=== PATIENT | male | born 1945 | race Caucasian/White ===

== ENCOUNTER 2017-10-12 06:22 | Day surgery (SDC) | payer MEDICARE ==
[~2017-10-12 06:22] MED LIST: RINGER'S SOLUTION,LACTATED 1,000 ML IV PRN; ceFAZolin SODIUM 2 GM in DEXTROSE 5 % IN WATER 50 ML IV PRN
[2017-10-12] MEDS ORDERED: RINGER'S SOLUTION,LACTATED 1,000 ML IV ONE (09:03)
[2017-10-12] MEDS ORDERED: BUPIVACAINE HCL/EPINEPHRINE 50 ML VIAL IJ ONE (09:50)
[2017-10-12] MEDS ORDERED: oxyCODONE HCL/ACETAMINOPHEN 1 TAB TABLET PO ONE (10:01)
[2017-10-12] MEDS ORDERED: RINGER'S SOLUTION,LACTATED 1,000 ML IV PRN (10:01)
[2017-10-12 12:05] VITALS: BP 125/82
--- NOTE | 2017-10-12 18:17 | OR ---
Operative Report - Dictated Report Narrative: OPERATIVE REPORT DATE OF OPERATION: 10/12/2017 PREOPERATIVE DIAGNOSIS: Ventral incisional hernia. History of colon polyps POSTOPERATIVE DIAGNOSIS: Ventral incisional hernia. Normal colonoscopy OPERATION: Colonoscopy. Repair of ventral incisional hernia using small Ventralex hernia patch SURGEON: Milena Aleman MD ANESTHESIA: Gen. endotracheal anesthesia Wale Gonzales CRNA INDICATIONS FOR PROCEDURE: The patient is a 72-year-old male referred by Dr. Fink. He has developed a reducible ventral incisional hernia above the umbilicus which is enlarging and increasingly symptomatic. He had removal of a 5 mm tubular adenoma in the ascending colon on colon exam in 2011. The patient' s father had colon cancer at age 80. FINDINGS: Properitoneal fat containing ventral incisional hernia with 2 cm fascial defect. Diverticulosis, otherwise normal colonoscopy to the cecum NARRATIVE OF PROCEDURE: The patient was identified in the holding area, and prior to the administration of anesthetic, a multidisciplinary timeout was observed. The patient was placed supine, SCDs were applied and general endotracheal anesthetic administered. COLONOSCOPY: With the patient in the left lateral position and after the administration of intravenous sedation, the perineum was inspected. There was no evidence of pilonidal disease or skin breakdown. The external appearance of the anus was normal. Sphincter tone was good. The flexible fiberoptic colonoscope was inserted into the rectum which was insufflated with air. The rectal mucosa and submucosal vascular pattern appeared normal, the prep was seen to be complete with exception of some green liquid which could be suctioned sufficient for diagnostic purposes. The scope was advanced through the sigmoid colon, which contained several not impacted noninflamed diverticular openings. The scope was advanced up the descending colon, and around the splenic flexure where the triangular haustral architecture of the transverse colon was seen. The scope was advanced across the transverse colon, around the hepatic flexure to the cecum, where the confluence of tenia and the ileocecal valve were identified. The mucosa at this level appeared normal. The scope was then slowly withdrawn in a circular fashion so that all aspects of colonic mucosa were inspected. The colon was normal in course and caliber. The haustral architecture appeared well preserved throughout with no evidence of external compression. The mucosa and submucosal vascular pattern appeared normal, specifically there was no gross evidence to suggest colitis or inflammatory bowel disease and no AV malformations were seen. The diverticulosis was mild to moderate in degree and confined primarily to the sigmoid colon. No polyps were encountered. The scope was gradually withdrawn to the level of the rectum. As much insufflated air as possible was removed. The scope was withdrawn from the patient and this portion of the procedure terminated. REPAIR OF VENTRAL INCISIONAL HERNIA: The patient was returned to the supine position without incident and 2 g of intravenous Ancef administered. The patient's abdomen was prepped with Betadine solution and the midline above the umbilicus outlined with 4 sterile towels. The remainder the patient was covered with a sterile disposable drape. A 5 cm midline surgical incision above the umbilicus to include the previous surgical scar. Dissection was carried into subcutaneous tissue with electrocautery until herniated properitoneal fat was encountered. This was dissected free from surrounding subcutaneous tissue down to the fascial defect which measured approximately 2 cm. The fat could then be reduced into the properitoneal space. There was an additional 3 mm fascial defect just superior to the main defect. Digital palpation of the undersurface of the anterior abdominal wall revealed no additional defects. The properitoneal space was then developed circumferentially to allow for placement of a small ventralex hernia patch. The patch was deployed and completely unfurled. The wings of the patch were then secured above and below the defect with interrupted sutures of 0 Ethibond. The superior suture included and closed the smaller fascial defect as well. 4 additional sutures of 0 Ethibond were used circumferentially to secure the patch to the fascia. After receiving a correct sponge needle and instrument count attention was turned to closing the wound. Subcutaneous tissue was approximated over the mesh in layers with interrupted sutures of 0 chromic. The skin was secured with a running subcuticular suture of 4-0 Vicryl. The operative site was washed and dried. Dressings of Dermabond folded 4 x 4 and Medipore tape were applied. No specimen was submitted. There was no measurable blood loss. 0.25% Marcaine with epinephrine was used for local anesthetic infiltration. The operative procedure was terminated at this point. The patient tolerated the anesthetic and procedure well without complication and was transferred to the recovery room awake, extubated, and in stable condition. The patient remained stable throughout a period of postoperative observation. His incisional discomfort was controlled with po Percocet, he was able to tolerate by mouth intake, and was up without assistance. I shared the operative findings with the patient and he was given copies of the photographs which appear in the medical record. He was discharged home with instructions not to engage in hazardous activity today. He is not to lift he is not to drive. He is to leave the current dressing dry and intact for 48 hours but then may shower and change the dressing daily or as needed. He was given a prescription for Percocet 5/325 mg #30. He may advance diet as tolerated. He is to continue those medications as listed in the history and physical exam. He has phone numbers to call if needed for questions or concerns, and a return office appointment was made for 1 week. Reviewed and electronically signed
== END 2017-10-12 06:23 | disposition home or self-care (01) ==
LOC: AMB 06:22
PROVIDERS: ATTEND Surgery
PROC: 0DJD8ZZ Inspection of Lower Intestinal Tract, Via Natural or Artificial Opening Endoscopic (ICD-10-PCS; principal; 2017-10-12)
PROC: 0WUF0JZ Supplement Abdominal Wall with Synthetic Substitute, Open Approach (ICD-10-PCS; 2017-10-12)
DX: Z12.11 Encounter for screening for malignant neoplasm of colon (principal); K43.2 Incisional hernia without obstruction or gangrene; Z86.010 Personal history of colon polyps; Z80.0 Family history of malignant neoplasm of digestive organs; Z87.891 Personal history of nicotine dependence; Z68.30 Body mass index [BMI] 30.0-30.9, adult
CPT/HCPCS: 49560; 49568; G0105

== ENCOUNTER 2020-04-15 06:22 | Observation (INO) ==
--- NOTE | 2020-04-09 08:20 | ANES ---
Anesthesia Pre Procedure Eval HOME MEDICATIONS Cinnamon Bark [Cinnamon] 500 mg PO DAILY 10/03/17 [Last Taken Unknown] Anya Root [Anya] 250 mg PO DAILY 10/03/17 [Last Taken Unknown] Termac 1 tsp PO DAILY 10/03/17 [Last Taken Unknown] meloxicam 15 mg tablet 15 mg PO DAILY #90 tab 08/10/19 [Last Taken Unknown] trazodone 100 mg tablet 100 mg PO HS tab 08/30/19 [Last Taken Unknown] montelukast 10 mg tablet 10 mg PO HS #90 tab 09/18/19 [Last Taken Unknown] tadalafil 20 mg tablet 20 mg PO DAILY PRN #90 tab 04/07/20 [Last Taken Unknown] Allergies/Adverse Reactions: Allergies Allergy/AdvReac Type Severity Reaction Status Date / Time Penicillins Allergy Intermediate Other Verified 04/08/20 14:26 - Planned Procedure Planned Procedure: Right Total Knee Arthroplasty Medication List Reviewed:: Yes Allergies Verified: Yes Medical History (Last Reviewed 04/09/20 @ 08:18 by Kobe England CRNA) Diverticulosis (Chronic) Onset Date: 10/12/17 * No benzodiazepines or SHY receptor agonists Onset Date: 10/09/[address] Isaiah Agarwal ([facility]), patient should be off benzodiazepines and/or any SHY receptor agonists or any medication that might affect directly or indirectly the cerebellum. Ataxia Onset Date: 10/09/18 Dr. Isaiah Ceja, [facility]. Chronic progressive ataxia. 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 Los Coyle, [facility]. Pneumococcal vaccine refused [facility]: [facility]aneurysm Onset Date: 06/12/18 Dr. Los Coyle [facility]. Right. Squamous blepharitis of right lower eyelid Onset Date: 06/12/18 Bunion Onset Date: ~2005 Head injury Onset Date: Unknown Requiring 47 stitches. Hernia, hiatal Onset Date: Unknown Inguinal hernia Onset Date: Unknown Prostate cancer Onset Date: Unknown Tubular adenoma Onset Date: 09/24/11 Surgical History (Last Reviewed 04/09/20 @ 08:18 by Kobe England CRNA) History of arthroscopic knee surgery Onset Date: 08/25/99 Dr. Casas [facility]. Right. History of bunionectomy Onset Date: 12/09/05 Dr. Casas [facility]. Left. History of colonoscopy Onset Date: 09/24/11 Dr. Bo Rincon [facility]. Tubular adenoma. Repeat 5 years. History of colonoscopy Onset Date: 10/12/17 Dr. Ale Aleman [facility]. Diverticulosis. History of colonoscopy Onset Date: 08/12/00 Dr. Bo Rincon [facility]. Normal. History of incisional hernia repair Onset Date: 10/12/17 Dr. Ale Aleman [facility]. Ventral with small Ventralex patch. History of inguinal hernia repair, bilateral Onset Date: Unknown History of radical prostatectomy Onset Date: ~2007 History of shoulder surgery Onset Date: Unknown History of tonsillectomy Onset Date: Unknown Family History (Last Reviewed 04/09/20 @ 08:18 by Kobe England CRNA) Brother Hypertension Brother Throat cancer Father , age 83 Colon cancer Mother , age 84 Bone cancer - Family Anesthesia History Family History:: no untoward family reactions to anesthesia, no familial bleeding tendencies, no family history of clotting disorders, no family history of premature - Airway/Neck/Teeth Within Normal Limits:: Yes Teeth Condition: intact Denture Type: Perm crown/bridge Mallampatti Score: 1 Thyromental (T-M) distance: > 6 cm Mandibulo Hyoid distance: > 3 cm - Respiratory Smoking Status: Former smoker Discussed smoking cessation including day of surgery: No Sleep Apnea currently treated: No Sleep Apnea by current assessment: No Discussed Risks/Treatment of AUTUMN: No - Cardiovascular Tolerate Activity: Fair Heart Sounds: S1 & S2, Regular - Anesthesia Assessment and Plan ASA Class: PS, III Anesthesia Type Plan: Block - Right ultrasound guided adductor canal nerve block for postop analgesia, Spinal
[~2020-04-15 06:22] MED LIST changes: +ISOPROPYL ALCOHOL 480 APPL BTL MC ONE; +MORPHINE SULFATE 15 MG TABLET.SA PO PRN; -RINGER'S SOLUTION,LACTATED 1,000 ML IV PRN; +ROPIVACAINE HCL/PF 100 MG, EPINEPHrine 0.2 MG, KETOROLAC TROMETHAMINE 30 MG in NORMAL S... IJ PRN; +TRANEXAMIC ACID 1,000 MG in NORMAL SALINE 100 ML IV PRN; +ceFAZolin SODIUM 1 GM VIAL IV PRN; +ceFAZolin SODIUM 1 GM VIAL ONE; -ceFAZolin SODIUM 2 GM in DEXTROSE 5 % IN WATER 50 ML IV PRN
[2020-04-15] MEDS: RINGER'S SOLUTION,LACTATED 1,000 ML IV PRN ×3 (07:03→09:30)
[2020-04-15] MEDS ORDERED: fentaNYL CITRATE/PF 50 MCG/ML AMPUL ONE (07:28)
[2020-04-15] MEDS ORDERED: LIDOCAINE HCL 20 ML VIAL ONE (07:28)
[2020-04-15] MEDS ORDERED: ONDANSETRON HCL/PF 2 MG/ML VIAL ONE (07:29)
[2020-04-15] MEDS ORDERED: PROPOFOL VIAL IV ONE (07:29)
[2020-04-15] MEDS ORDERED: BUPIVACAINE HCL/EPINEPHRINE 50 ML VIAL ONE (07:29)
[2020-04-15] MEDS ORDERED: diphenhydrAMINE HCL 50 MG/ML VIAL IV PRN (09:53)
[2020-04-15] MEDS ORDERED: ACETAMINOPHEN 500 MG TABLET PO PRN (09:53)
[2020-04-15] MEDS ORDERED: MAG HYDROX/ALUMINUM HYD/SIMETH 30 ML UDC PO PRN (09:53)
[2020-04-15] MEDS ORDERED: ZOLPIDEM TARTRATE 5 MG TABLET PO PRN (09:53)
[2020-04-15] MEDS ORDERED: MAGNESIUM HYDROXIDE 30 ML UDC PO PRN (09:53)
[2020-04-15] MEDS ORDERED: ONDANSETRON HCL/PF 2 MG/ML VIAL IV PRN (09:53)
--- NOTE | 2020-04-15 09:53 | OR ---
Operative Report - Dictated Report Narrative: Date: 04/15/2020 Preoperative diagnosis: Right knee degenerative joint disease. Postoperative diagnosis: Right knee degenerative joint disease. Procedure: Right total knee arthroplasty. Surgeon: Hayder Coronel M.D. Radar Systems Engineer: Deven Yu PA-C (provided and essential set of skilled, educated hands that assisted with transfer, positioning, prepping, draping, manipulation, retraction, placement of jigs, injection, insertion of implants, irrigation, closure wounds, and dressings all of which could not be performed by the available surgical crew) Anesthesia: Spinal with regional block and local periarticular joint injection. Complications: None Specimens: Bone. Estimated blood loss: Minimal. Tourniquet time: 90 Minutes at 325 millimeters of mercury. Retained implants: Depuy Attune size 8 right lugged cemented posterior stabilized femoral component. Size 7 fixed-bearing cemented tibial platform. 8 by 6 millimeter posterior stabilized cross-linked tibial insert. 41 millimeter medialized patella button. Indications: Mr. Nation is a 74-year-old gentleman who has had longstanding right knee pain and arthrosis. This patient was followed in my clinic for period of time with significant complaints of right knee pain consistent with arthritic changes. He had failed conservative measures including, but not limited to, activity modification, passage of time, medications, and other conservative measures. Patient wished to proceed with surgical treatment. The risks, benefits, and alternatives were discussed in clinic. The risks of , blood clots, bleeding, infection, nerve/tendon blood vessel/ injury, malposition of components, intraoperative fracture, postoperative limited range of motion, persistent pain, failure of components, and need for additional procedures. Patient wished to proceed consent was obtained after answering all questions. Procedure: After marking the correct extremity on the floor, the patient was taken to the operating room. A timeout was performed. IV antibiotics consisting of Ancef were administered prior to the procedure. A regional followed by spinal anesthetic was induced by anesthesia, per my request, on the operative table with all bony prominences well-padded. Jordan catheter was placed, and a bump was placed under the operative side buttock. SCDs and SHAHID hose were utilized on the nonoperative leg. A well-padded tourniquet was applied to the operative thigh. The operative leg was then pre-scrubbed with alcohol, prepped, and draped in a standard sterile fashion. After exsanguinating the extremity with an Esmarch bandage, the tourniquet was inflated. After marking out the anterior knee for standard incision centered over the patella, the skin was incised and dissected down to the joint retinaculum. The joint retinaculum was marked out as well as the horizontal axis of the patella, and a standard medial parapatellar arthrotomy was then made. The most proximal aspect of the quadriceps tendon and the patella tendon insertion were protected from release. A partial synovectomy was performed as well as a resection of the infrapatellar fat pad. The distal femoral fat pad proximal to the trochlea was also resected using cautery. The soft tissues were elevated off the medial aspect of the proximal tibia using a Richard elevator ensuring that we did not transect the medial collateral ligament. Upon initial evaluation range of motion was approximately 5 degrees to 130 degrees of flexion. There were signs of advanced arthrosis in the medial, lateral, and patellofemoral joint spaces. He had a large scarred in loose body in the lateral patellar retinaculum as well as the popliteal space. These were removed. There were large marginal osteophytes which were removed with a rongeur. The knee was hyperflexed and the patella was tucked laterally. Protecting the surrounding soft tissues with Homans, an entry drill was placed down the femoral canal using Whitesides line for guidance into the entry point. The intramedullary femoral alignment dony was utilized in order to cut the distal femur in 5 degrees of valgus resecting 10 millimeters of bone. Next the distal femur was sized to a size 8. A posterior referencing guide was utilized to place the distal femoral cutting block in 3 degrees of external rotation. This was pinned into place. The rotation was confirmed both visually and based on anatomic landmarks. The 4 in 1 cutting jig of the appropriate size was utilized in order to make all bony cuts. The diane wing was used to ensure no notching. Retractors were utilized in order to protect surrounding soft tissues. This cut did not result in any excessive notching. We then cut the box centered over the distal femur. This allowed for resection of the anterior and posterior cruciate ligaments. I then turned my attention to the preparation of the tibia. Using an extra medullary tibial alignment dony, 3 millimeters of bone was resected off the medial articular surface. This was made perpendicular to the mechanical axis of the joint with the alignment dony centered over the ankle mortise. The alignment dony was checked and was noted to be parallel to the mechanical axis, centered over the medial one third of the tibial tubercle, paralleling the anterior surface of the tibia. We then turned our attention to the remaining meniscus and soft tissues. These were removed while protecting the surrounding ligaments and soft tissues. The marginal osteophytes off the anterior, posterior, medial, lateral aspects of the femur and tibia were removed. The tibia was sized out to a size 7. Next the tibia was drilled and punched in an externally rotated position. Next the trial femur and a series of tibial inserts were utilized in order to allow for full extension and maximal flexion. It was found that a 6 millimeter insert gave the best range of motion and stability at multiple flexion points as well as at full extension there was less than 2 mm of gapping both medially and laterally. There is minimal anterior translation with the knee at 90 degrees of flexion and no signs of being able to dislocate the knee. The patella was then prepared. The initial thickness was 21 millimeters. This was reamed down to 12 millimeters parallel to the anterior surface of the patella. It was sized out to a size 41 medialized patella button. This was then drilled and trialed. Without any medial restraint the patella tracked appropriately and did not sublux or dislocate. At this point, it was felt these were the appropriate sized implants, and all trials were removed. The standard periarticular joint injection consisting of ropivacaine, Toradol, and epinephrine were injected into the periarticular joint tissues. The bony surfaces were thoroughly irrigated with a pulsatile-suction saline irrigation device. A bone plug from the prior resected anterior chamfer cut was placed into the drill hole at the distal femur. The bony surfaces were then dried in preparation for placement of the implants. The cement was vacuum mixed per the engineering secretary's instructions. The cement was placed on the dry bony surfaces and posterior aspect of the implants. The implants were impacted into place, removing all extruded cement. At this point anesthesia administered tranexamic acid per protocol intravenously. The knee was placed in extension with axial loading with the trial insert while the cement cured. Once the cement cured, all remaining extruded cement was removed. The knee was placed through a range of motion with the trial insert to ensure appropriate range of motion and stability. Final range of motion was approximately 0 to 130 degrees. The knee was again thoroughly irrigated with pulsatile saline lavage. The final polyethylene insert was then impacted into place ensuring no retained soft tissues. The remaining periarticular joint injection was injected. A medium Hemovac drain was placed exiting superior laterally. The knee was then placed over a triangle and the arthrotomy was closed with interrupted #1 Vicryl after thoroughly irrigating the joint. The deep and subcutaneous tissues were closed with interrupted 0 and 3-0 Vicryl respectively. Skin was closed with a running subcutaneous 3-0 Monocryl and Prineo Dermabond dressing. 4 x 4's, Sof-Rol, and a full leg Ousmane wrap were applied. All sponge, needle, blade, and instrument counts were correct prior to closing the wounds. Postoperative condition: The patient was awoken and transferred to the postanesthesia care unit in stable condition. Plan is to be admitted to the inpatient medical/surgical floor postoperatively for 24 hours of IV antibiotics, physical therapy, occupational therapy, and medical comanagement. Patient will be weightbearing as tolerated with range of motion as tolerated. DVT prophylaxis will be with SCDs, SHAHID hose, and pharmacological anticoagulation. Anticipated hospital stay is approximately 1-3 days.
[2020-04-15] MEDS ORDERED: TADALAFIL 20 MG TABLET PO PRN (09:56)
--- NOTE | 2020-04-15 10:29 | ANES ---
Post Anesthesia Discharge - Transfer of Care Transfer of Care handoff given to nurse: Yes - Discharge from PACU Discharge from PACU when meets criteria: Yes - Discharge to ASU Discharge to ASU-no complications/pt stable: Yes
--- NOTE | 2020-04-15 10:31 | ANES ---
Post Anesthesia Assessment - Vital Signs Vitals: Last Vital Signs Temp 36.1 C 04/15/20 10:25 Pulse 60 04/15/20 10:25 Resp 14 04/15/20 10:25 BP 82/46 L 04/15/20 10:25 Pulse Ox 94 04/15/20 10:25 Airway Patency: Normal - Mental Status Level Of Consciousness: Awake - Pain Level Pain Score: 0 - N/V Assessment Nausea/Vomiting Presence: None Dehydration:: No
--- NOTE | 2020-04-15 10:31 | ANES ---
Anesthesia Procedure Note Procedure Note: ANESTHESIA PROCEDURE NOTE Date of Procedure: 04/15/2020. Time of procedure: 734. Performed by: Kobe England CRNA Cell Operator: None. Preprocedure diagnosis: Right knee degenerative joint disease. Post procedure diagnosis: Same. Procedure: Right ultrasound guided adductor canal block for postoperative analgesia. Indications: The patient is a 74-year-old male, requesting right ultrasound- guided abductor canal nerve block for postoperative analgesia related to right total knee arthroplasty. Findings: See below. Details of the procedure: The tissue over the intended target site was cleansed with ChloraPrepand draped in a sterile fashion. 2 ml Lidocaine 1 % was infiltrated to the skin and subcutaneous tissue at the intended target site. Under sterile technique and ultrasound guidance a 20-gauge block needle was inserted through the right sartorius muscle to the saphenous nerve just anterior and medial to the superficial femoral artery and vein. 15 mL's of 0.5% bupivacaine was injected after negative aspiration for blood. Needle tip and spread of local anesthetic surrounding the saphenous nerve was observed throughout the injection with real time ultrasound visualization. The needle was then removed intact. No complications were noted. The images were retained in the Hospital medical database. EBL: Minimal. Fluids: N/A. Specimen: N/A. Post procedure condition: The patient tolerated the procedure well. No complications were noted. Thank you for this consultation. Kobe England CRNA
[2020-04-15] MEDS: DEXTROSE 5%-LACTATED RINGERS 1,000 ML IV PRN ×2 (10:48→19:58)
[2020-04-15] MEDS: KETOROLAC TROMETHAMINE 15 MG/ML VIAL IV SCH ×3 (11:09→21:01)
[2020-04-15] MEDS: CEFAZOLIN SODIUM/DEXTROSE,ISO 1 GM/50 ML BAG IV SCH ×3 (11:11→23:13)
[2020-04-15] MEDS: oxyCODONE HCL/ACETAMINOPHEN 1 TAB TABLET PO PRN ×2 (16:11→20:59)
[2020-04-15] MEDS ORDERED: SENNOSIDES/DOCUSATE SODIUM 1 TAB TABLET PO SCH (21:00)
[2020-04-15] MEDS ORDERED: MONTELUKAST SODIUM 10 MG TABLET PO SCH (21:00)
[2020-04-15] MEDS ORDERED: traZODone HCL 50 MG TABLET PO SCH (21:00)
[2020-04-15] MEDS ORDERED: MELATONIN 3,000 MCG TABLET PO SCH (21:00)
[2020-04-16] MEDS: KETOROLAC TROMETHAMINE 15 MG/ML VIAL IV SCH ×2 (04:14→09:59)
[2020-04-16] MEDS: oxyCODONE HCL/ACETAMINOPHEN 1 TAB TABLET PO PRN ×3 (04:52→13:57)
[2020-04-16 06:35] LABS: Hematocrit 34.1 % (42.0-52.0); Hemoglobin 11.1 gm/dL (13.5-18.0); Mean Cell Volume 87.2 fl (78-100); Mean Corpuscular Hemoglobin 28.4 pg (27-31); Mean Corpuscular Hgb Conc 32.6 g/dl (32-36); Mean Platelet Volume 8.5 fl (8-11.3); Platelet Count 212 K/mm3 (150-450); Red Blood Count 3.91 M/mm3 (4.7-6.0); Red Cell Distribution Width 13.1 % (11.5-14.0); White Blood Count 8.9 K/mm3 (4.0-10.5)
[2020-04-16 06:52] LABS: Anion Gap 10.1 mmol/L (6.8-13.8); BUN/Creatinine Ratio 11.6 (9.0-21.6); Calcium * 8.3 mg/dL (7.9-10.9); Carbon Dioxide 30.4 mmol/L (24-32.6); Estimated Creat Clear 55.3; Potassium 4.5 mmol/L (3.4-4.6)
[2020-04-16] MEDS: ESCITALOPRAM OXALATE 10 MG TAB PO SCH ×2 (08:23)
[2020-04-16] MEDS: VITAMIN B COMP W-C 1 TAB TABLET PO SCH ×2 (08:23→08:24)
[2020-04-16] MEDS ORDERED: ENOXAPARIN SODIUM 40 MG/0.4 ML SYRG SC SCH (08:54)
--- NOTE | 2020-04-16 11:33 | DS ---
Date of Discharge:: 04/16/20 Hospital Course: Mr. Nation was admitted to the floor after undergoing right total knee arthroplasty. Tolerated this well. Was admitted to the floor postoperatively for 24 hours of IV antibiotics, pain control, medical comanagement, and occupational and physical therapy. OT and PT were consulted to assist with activities of daily living and ambulation. Was made weightbearing as tolerated with range of motion as tolerated. Pain was initially controlled with IV regimen. This was transitioned to oral once tolerating a by mouth intake. Was resumed on home diet and medications. Had a Jordan catheter inserted and the operating room which was discontinued on postoperative day 1. A drain was plac ed intraoperatively into the knee which was discontinued on postoperative day 1. Lovenox SCD and SHAHID hose were utilized for DVT prophylaxis. Vital signs remained stable to the hospital course. Serial labs were obtained which showed a final hemoglobin of 11.1 grams. BMP was reviewed and was stable. Physical examination throughout the hospital course showed an extremity that had sensation that was intact to light touch, palpable pulses, a benign wound, motor intact to the toes, ankle, and knee. Knee range of motion was approximately 5 degrees to 80 degrees. Once an oral pain regimen was tolerated and physical therapy goals were met, it was felt that they were stable for discharge to home. Instructions: Continue with weightbearing as tolerated and range of motion as tolerated. It is OK to shower on the wound if it is not draining. If you note any drainage or for comfort you can cover with dry gauze and tape. Change every 2-3 days as needed. Continue with physical therapy. Resume home diet. Report any fever over 101.5 Fahrenheit, uncontrolled pain, increased drainage, foul odor of drainage, new or increased calf pain or shortness of breath, or any other significant complaints. A 325mg dialy aspirin will be started after finishing anticoagulation if not allergic. Continue with SHAHID hose on the operative extremity until instructed otherwise. No driving until instructed otherwise. Follow up in approximately 10-14 days. Procedures Performed: see notes below List Procedures: Right total knee arthroplasty Results and Findings: Lab Pending Results 04/16/20 06:00: WBC 8.9, RBC 3.91 L, Hgb 11.1 L, Hct 34.1 L, MCV 87.2, MCH 28.4, MCHC 32.6, RDW 13.1, Plt Count 212, MPV 8.5 04/16/20 06:00: Sodium 138, Plasma Sodium 138, Potassium 4.5, Chloride 102, Carbon Dioxide 30.4, Anion Gap 10.1, BUN 14, Creatinine 1.21, Est GFR (Non-Af Amer) 62, BUN/Creatinine Ratio 11.6, Random Glucose 97, Calcium 8.3 Discharge Location: Home Disposition: Home self-care Condition: Good Discharge Activity: Activity as tolerated, Weight bearing, Other - With wheeled walker Discharge Diet: General/regular food Referrals: Johnny Fink DO [Primary Care Provider] - Additional Patient Instructions (free text): PT at [facility] 04/17/20 at 08:30am. Follow up in the Orthopedic office with Deven Yu May 07 at 9:15 am. Prescriptions (Any new or edited meds): Enoxaparin Sodium [Lovenox] 40 mg SC Q24H #7 disp.syrin Transmission Status: Pending to [facility] #[id number] oxyCODONE HCL/ACETAMINOPHEN [Percocet 5 MG/325 MG] 2 tab PO Q4H PRN #56 tab PRN Reason: Moderate Pain (Pain Scale 4-6) Transmission Status: Received by [facility] #[id number] Sennosides/Docusate Sodium [Senokot-S] 2 tab PO HS #30 tab Transmission Status: Pending to [facility] #[id number] Complete Home Medications List: Complete Home Medication List: meloxicam 15 mg tablet 15 mg PO DAILY #90 tab 08/10/19 trazodone 100 mg tablet 100 mg PO HS tab 08/30/19 montelukast 10 mg tablet 10 mg PO HS #90 tab 09/18/19 tadalafil 20 mg tablet 20 mg PO DAILY PRN #90 tab 04/07/20 Escitalopram Oxalate 10 mg PO DAILY 04/09/20 Melatonin 5 mg PO HS 04/09/20 Vitamin B Complex 1 cap PO DAILY 04/09/20 Enoxaparin Sodium [Lovenox] 40 mg SC Q24H #7 disp.syrin 04/16/20 Sennosides/Docusate Sodium [Senokot-S] 2 tab PO HS #30 tab 04/16/20 oxyCODONE HCL/ACETAMINOPHEN [Percocet 5 MG/325 MG] 2 tab PO Q4H PRN #56 tab 04/16/20 Amb Orders for Discharge: PT Evaluation and Treatment* Facility: [facility], Location: Rehabilitation Services Forms: Patient Portal Registration
--- NOTE | 2020-04-16 11:36 | DS ---
(1) Status post total right knee replacement Problem: Acute Date of Discharge:: 04/16/20 Hospital Course: 74-year-old male postop day 1 status post right total knee arthroplasty. Patient was admitted postoperatively for monitoring, PT/OT, pain control, return to p.o. diet. Patient has had an uncomplicated stay to this point. He is doing well he has accomplished ambulating without significant pain with PT/OT. Discussed with patient discharge today, and continued plan of care. Exam today reveals right lower extremity--> bandages in place, clean/dry/intact, distal capillary refill brisk, sensation tact light touch, 5/5 plantar flexion dorsiflexion ankle, no significant erythema or drainage through dressing. Patient will otherwise continue with the following recommendations: -Weightbearing as tolerated, assistive device PRN -PT/OT progress as tolerated per protocol -P.o. diet as tolerated -P.o. pain medication PRN -DVT prophylaxis: Lovenox for 10 days followed by 325 mg aspirin daily for 4 to 6 weeks, SHAHID hose knee-high bilateral -Maintain pernio dressing in place -Follow-up with orthopedic outpatient clinic at 3 weeks postop -Disposition: Discharge home with outpatient PT, follow-up with orthopedic Procedures Performed: see notes below List Procedures: Status post right total knee arthroplasty Results and Findings: Lab Pending Results 04/16/20 06:00: WBC 8.9, RBC 3.91 L, Hgb 11.1 L, Hct 34.1 L, MCV 87.2, MCH 28.4, MCHC 32.6, RDW 13.1, Plt Count 212, MPV 8.5 04/16/20 06:00: Sodium 138, Plasma Sodium 138, Potassium 4.5, Chloride 102, Carb on Dioxide 30.4, Anion Gap 10.1, BUN 14, Creatinine 1.21, Est GFR (Non-Af Amer) 62, BUN/Creatinine Ratio 11.6, Random Glucose 97, Calcium 8.3 Discharge Location: Home Disposition: Home self-care Condition: Stable Discharge Activity: Activity as tolerated, Weight bearing - Assistive device PRN Discharge Diet: General/regular food Referrals: Johnny Fink DO [Primary Care Provider] - Problem Oriented Discharge Instructions to Patient/Family: Total Knee Replacement, Care After, [id number] Language (Citizen Of [place] or Estonian Available): Citizen Of [place] Additional Patient Instructions (free text): PT at [facility] 04/17/20 at 08:30am. Follow up in the Orthopedic office with Deven Yu May 07 at 9:15 am. Prescriptions (Any new or edited meds): oxyCODONE HCL/ACETAMINOPHEN [Percocet 5 MG/325 MG] 2 tab PO Q4H PRN #56 tablet PRN Reason: Moderate Pain (Pain Scale 4-6) Transmission Status: Pending to [facility] #[id number] Complete Home Medications List: Complete Home Medication List: meloxicam 15 mg tablet 15 mg PO DAILY #90 tab 08/10/19 trazodone 100 mg tablet 100 mg PO HS tab 08/30/19 montelukast 10 mg tablet 10 mg PO HS #90 tab 09/18/19 tadalafil 20 mg tablet 20 mg PO DAILY PRN #90 tab 04/07/20 Escitalopram Oxalate 10 mg PO DAILY 04/09/20 Melatonin 5 mg PO HS 04/09/20 Vitamin B Complex 1 cap PO DAILY 04/09/20 oxyCODONE HCL/ACETAMINOPHEN [Percocet 5 MG/325 MG] 2 tab PO Q4H PRN #56 tablet 04/16/20 Amb Orders for Discharge: PT Evaluation and Treatment* Facility: [facility], Location: Rehabilitation Services Forms: Patient Portal Registration
[2020-04-16 13:52] VITALS: BP 114/58
== END 2020-04-16 14:00 | disposition home or self-care (01) ==
LOC: SUR 06:22 → MS 06:22
PROVIDERS: ADMIT Orthopaedic Surgery; ATTEND Orthopaedic Surgery
DX: M17.11 Unilateral primary osteoarthritis, right knee